=== PATIENT | female | born 1990 | race Caucasian/White ===

== ENCOUNTER → 2019-04-08 | Outpatient (CLI) | payer OTHER | LOC: M WUC 12:27 | PROVIDERS: ATTEND Advanced Practice Midwife | DX: O36.80X0 Pregnancy with inconclusive fetal viability, not applicable or unspecified (principal) ==

== ENCOUNTER → 2019-04-13 | Outpatient (CLI) | payer OTHER ==
--- NOTE | 2019-04-14 02:21 | REP ---
Clinical: Dating and viability. Technique: Transabdominal first trimester obstetrical ultrasound Findings: Single live early intrauterine is appreciated. Gestational sac with yolk sac and pole identified. [place]-rump length of 37 mm corresponds to 10 weeks 4 days gestational age with estimated date of delivery 11/05/2019 . heart rate equals 161 beats per minute. No gross abnormalities are identified. Impression: Single live early intrauterine at 10 weeks 4 days gestational age. Complete anatomical assessment should be performed and 19-20 weeks.
== END ==
LOC: M WHC 13:44 → EDUNIT# 14:00
PROVIDERS: ATTEND Advanced Practice Midwife
DX: O36.80X0 Pregnancy with inconclusive fetal viability, not applicable or unspecified (principal)